=== PATIENT | female | born 1975 | race Caucasian/White ===

== ENCOUNTER 2021-08-30 09:12 | Day surgery (SDC) | payer BC ==
[2021-08-27 16:24] VITALS: BMI 28.7
[2021-08-30] MEDS ORDERED: Lidocaine 1% MPF 2 ML VIAL ONE (09:40)
[2021-08-30] MEDS ORDERED: PROPOFOL 60 ML ONE (10:02)
[2021-08-30] MEDS ORDERED: Lidocaine 1% PF 5 ML VIAL ONE (10:02)
== END 2021-08-30 12:22 | disposition home or self-care (01) ==
LOC: CSHSDC 09:12
PROVIDERS: ATTEND Internal Medicine Gastroenterology
PROC: 0DBM8ZZ Excision of Descending Colon, Via Natural or Artificial Opening Endoscopic (ICD-10-PCS; principal; 2021-08-30)
DX: Z12.11 Encounter for screening for malignant neoplasm of colon (principal); D12.4 Benign neoplasm of descending colon; K62.1 Rectal polyp; F41.9 Anxiety disorder, unspecified; F32.A Depression, unspecified; F17.210 Nicotine dependence, cigarettes, uncomplicated
CPT/HCPCS: 88305; J2704

== ENCOUNTER 2025-04-18 12:15 | Emergency (ER) | payer OTHER ==
[2025-04-18] MEDS ORDERED: Dexamethasone 10 MG/ML VIAL ONE (12:50)
[2025-04-18 12:56] LABS: #Basophils 0.07 10x3/uL (0.0-0.2); #Eosinophils 0.19 10x3/uL (0.0-0.5); #Monocytes 0.80 10x3/uL (0.0-1.1); #Neutrophils 4.93 10x3/uL (1.5-8.4); %Basophils 0.7 % (0.0-2.0); %Eosinophils 1.9 % (0.0-6.0); %Lymphocytes 38.3 % (18.0-47.0); %Monocytes 8.2 % (0.0-10.0); %Neutrophils 50.5 % (40.0-75.0); Hematocrit 38.2 % (34.9-44.5); Hemoglobin 12.9 g/dL (12.0-15.5); Mean Corpuscular Hemoglobin 28.7 pg (27.0-33.0); Mean Corpuscular Volume 85.1 fL (81.6-98.3); Platelet Count 380 10x3/uL (150-450); Red Blood Cell (RBC) Count 4.49 10x6/uL (3.90-5.03); White Blood Cell (WBC) Count 9.77 10x3/uL (3.5-10.5)
[2025-04-18 13:12] LABS: ALT (SGPT) 19 U/L (Less than 34); AST (SGOT) 38 U/L (11-34); Albumin 4.0 g/dL (3.1-4.5); Alkaline Phosphatase 53 U/L (40-110); Anion Gap 13 mmol/L (10-20); BUN (Urea Nitrogen) 13 mg/dL (7.0-18.7); Bilirubin, Total 0.2 mg/dL (0.3-1.2); Calc. Creatinine Clearance 0 mL/min (70-130); Calcium 9.8 mg/dL (7.8-10.44); Carbon Dioxide 21 mmol/L (22-29); Chloride 108 mmol/L (98-107); Globulin 2.9 g/dL (2.4-3.5); Glucose 107 mg/dL (70-105); Potassium 3.3 mmol/L (3.5-5.1); Sodium 139 mmol/L (136-145)
[2025-04-18 13:16] LABS: Troponin I Less than 0.010 ng/mL (< 0.028)
== END 2025-04-18 14:00 | disposition home or self-care (01) ==
LOC: CSHERS 12:15
DX: J44.1 Chronic obstructive pulmonary disease with (acute) exacerbation (principal); R29.700 NIHSS score 0; F41.9 Anxiety disorder, unspecified; F17.210 Nicotine dependence, cigarettes, uncomplicated
CPT/HCPCS: 36415; 71045; 80053; 84484; 85025; 85379; 93005; 94640; 94760; 96374; J1100